=== PATIENT | male | born 1995 | race Caucasian/White ===

== ENCOUNTER 2018-07-05 18:53 | Emergency (ER) | payer MEDICAID ==
[~2018-07-05] VITALS: Ht 172.7 cm; Wt 150.0 kg
[2018-07-05 18:59] VITALS: BP 167/88
[2018-07-05] MEDS ORDERED: KETOROLAC 30MG/ML VIAL IM ONE (20:00)
[2018-07-05] MEDS ORDERED: DEXAMETHASONE 10 MG/ML VIAL IM ONE (20:00)
== END 2018-07-05 20:45 | disposition home or self-care (01) ==
LOC: ER 18:53
DX: J02.9 Acute pharyngitis, unspecified (principal); R21 Rash and other nonspecific skin eruption; Z91.018 Allergy to other foods
CPT/HCPCS: 96372; 99284; J1100; J1885

== ENCOUNTER 2019-07-08 22:32 | Emergency (ER) | payer MEDICAID ==
[~2019-07-08] VITALS: Ht 172.7 cm; Wt 150.0 kg
[2019-07-09 01:05] VITALS: BP 125/86
== END 2019-07-09 01:05 | disposition left against medical advice (07) ==
LOC: ER 22:32
DX: K52.9 Noninfective gastroenteritis and colitis, unspecified (principal); Z91.018 Allergy to other foods; J45.909 Unspecified asthma, uncomplicated; Z86.39 Personal history of other endocrine, nutritional and metabolic disease
CPT/HCPCS: 99283

== ENCOUNTER 2021-06-26 02:11 | Inpatient (IN) | payer MEDICAID ==
[~2021-06-26] VITALS: Ht 172.7 cm; Wt 153.3 kg
[2021-06-26] MEDS ORDERED: MAGNESIUM/ALUMINUM HYDROXIDE/SIMETHICONE 30ML UDC PO ONE (04:45)
[2021-06-26] MEDS ORDERED: VISCOUS LIDOCAINE 2% 15 ML UDC MM PRN (04:45)
[2021-06-26 05:21] LABS: BASOPHILS % 0.3 % (0.0-2.0); EOSINOPHILS % 0.2 % (0.0-5.0); HEMATOCRIT. 41.9 % (42.0-52.0); HEMOGLOBIN. 13.7 g/dL (14.0-18.0); LYMPHOCYTES % 10.1 % (20.0-50.0); MEAN CORPUSCULAR HEMOGLOBIN 25.5 pg (28.0-32.0); MEAN CORPUSCULAR VOLUME 77.9 fL (80.0-94.0); MEAN PLATELET VOLUME 8.9 fl (7.4-10.4); MONOCYTES % 5.5 % (2.0-8.0); NEUTROPHILS % 83.9 % (40.0-76.0); PLATELET 332 x1000/uL (130-400); RED BLOOD CELL COUNT 5.38 mill/uL (4.7-6.1)
[2021-06-26 05:28] LABS: CHLORIDE 109 mEq/L (98-107)
[2021-06-26] MEDS ORDERED: LEVOFLOXACIN 750MG PREMIX 150 ML IV ONE (07:00)
[2021-06-26] MEDS ORDERED: METRONIDAZOLE 500 MG PREMIX 100 ML IV ONE (07:00)
[2021-06-26] MEDS ORDERED: METR500T PO (08:10)
[2021-06-26] MEDS ORDERED: LEVO750T46 PO (08:10)
[2021-06-26] MEDS ORDERED: T3 PO (08:13)
[2021-06-26] MEDS ORDERED: MORPHINE SULFATE 2 MG/ML CPJ (NOT FOR IM USE) IV PRN (16:30)
[2021-06-26] MEDS ORDERED: DOCUSATE SODIUM 100MG CAPSULE PO PRN (16:30)
[2021-06-26] MEDS ORDERED: IPRATROPIUM/ALBUTEROL 0.5-3(2.5)MG/3ML NEB HHN PRN (16:30)
[2021-06-26] MEDS ORDERED: METRONIDAZOLE 500 MG PREMIX 100 ML IV SCH (16:30)
[2021-06-26] MEDS ORDERED: ONDANSETRON HCL 4MG/2ML INJ IV PRN (16:30)
[2021-06-26] MEDS ORDERED: LORAZEPAM 0.5MG TABLET PO PRN (16:30)
[2021-06-26] MEDS ORDERED: CLONIDINE 0.1MG TABLET PO PRN (16:30)
[2021-06-26] MEDS ORDERED: HYDROCODONE/ACETAMINOPHEN 5/325MG TABLET PO PRN (16:30)
[2021-06-26] MEDS ORDERED: ACETAMINOPHEN 325MG TABLET PO PRN ×2 (16:30)
[2021-06-26] MEDS ORDERED: CEFTRIAXONE 2 G in DEXTROSE 5% WATER 50 ML IV SCH (17:00)
[2021-06-26] MEDS: SODIUM CHLORIDE 0.9% 1,000 ML IV SCH ×2 (17:04→22:51)
[2021-06-26 20:50] VITALS: BP 132/86
[2021-06-26 22:06] VITALS: BP 132/86
[2021-06-26] MEDS: METRONIDAZOLE 500MG TABLET PO SCH (22:51)
[2021-06-27 04:00] VITALS: BP 129/66
[2021-06-27] MEDS: SODIUM CHLORIDE 0.9% 1,000 ML IV SCH ×2 (07:23→14:23)
[2021-06-27] MEDS: METRONIDAZOLE 500MG TABLET PO SCH ×2 (07:39→14:23)
[2021-06-27 08:00] VITALS: BP 131/82
[2021-06-27 08:16] LABS: BASOPHILS % 0.8 % (0.0-2.0); EOSINOPHILS % 4.4 % (0.0-5.0); HEMATOCRIT. 41.4 % (42.0-52.0); HEMOGLOBIN. 13.3 g/dL (14.0-18.0); MEAN CORPUSCULAR HEMOGLOBIN 25.3 pg (28.0-32.0); MEAN CORPUSCULAR VOLUME 78.6 fL (80.0-94.0); MEAN PLATELET VOLUME 9.5 fl (7.4-10.4); MONOCYTES % 7.7 % (2.0-8.0); NEUTROPHILS % 58.1 % (40.0-76.0); PLATELET 318 x1000/uL (130-400); RED BLOOD CELL COUNT 5.27 mill/uL (4.7-6.1)
[2021-06-27 08:19] LABS: CHLORIDE 106 mEq/L (98-107)
[2021-06-27 12:00] VITALS: BP 138/82
[2021-06-27 16:00] VITALS: BP 144/88
== END 2021-06-27 16:25 | disposition left against medical advice (07) | DRG 244 ==
LOC: ER 02:11 → 6EST 12:39 → ENRESERV 20:11
PROVIDERS: ADMIT Internal Medicine; ATTEND Internal Medicine
DX: K57.20 Diverticulitis of large intestine with perforation and abscess without bleeding (principal); K76.0 Fatty (change of) liver, not elsewhere classified; R16.0 Hepatomegaly, not elsewhere classified; D50.9 Iron deficiency anemia, unspecified; R74.01 Elevation of levels of liver transaminase levels; E66.01 Morbid (severe) obesity due to excess calories; I10 Essential (primary) hypertension; J45.909 Unspecified asthma, uncomplicated; Z91.018 Allergy to other foods; Z79.899 Other long term (current) drug therapy; Z79.2 Long term (current) use of antibiotics; Z71.3 Dietary counseling and surveillance; Z68.43 Body mass index [BMI] 50.0-59.9, adult
CPT/HCPCS: 36415; 74176; 80048; 80053; 85025; 99285; J0696; J1956; J3490; J7060